=== PATIENT | male | born 1980 | race Hispanic/Latino ===

== ENCOUNTER 2016-12-11 06:47 | Day surgery (SDC) | payer OTHER ==
[~2016-12-11] VITALS: Ht 175.3 cm; Wt 142.9 kg
[~2016-12-11 06:47] MED LIST: ANTIPY/BENZO OT; BACTRIM DS1 TAB PO; CELEBREX50 MG PO; CIPRO500 MG OR; CLEOCIN150 MG OR; CLEOCIN150 MG PO; CLINDAMYCIN150 MG OR; CLINDAMYCIN150 MG PO; CORTISPORIN OTI10 M1 OT; DICLOFEN POT50 MG PO; DORYX100 MG OR; FLEXERIL PO; FLEXERIL5 MG PO; FLOXIN OTIC OT; LISINOPRIL10 MG PO; LISINOPRIL20 MG OR; LORTAB 10 OR; LORTAB 10-325 M1 TAB PO; LORTAB 5 OR; LORTAB5 OR; LORTAB5 PO; LOVASTATIN10 M1 PO; LOVASTATIN20 MG OR; MEDDOSEPAK OR; METFORMIN1000 MG OR; METFORMIN500 M2 PO; NAPROSYN500 MG PO; NOVOLIN 70/30 RELION SC; NOVOLOG MIX SC; ROBITUSSIN AC10 ML PO; ULTRAM50 M1 PO; ZITHROMAX Z-PAK1 TAB PO; ZITHROMAX250 MG PO
[2016-12-11] MEDS ORDERED: ALPRAZOLAM1 MG PO (07:29)
[2016-12-11 08:48] VITALS: BP 121/62
== END 2016-12-11 09:35 | disposition home or self-care (01) | DRG 552 ==
LOC: ORM 06:47
PROVIDERS: ATTEND Anesthesiology Pain Medicine
PROC: 3E0T3BZ Introduction of Anesthetic Agent into Peripheral Nerves and Plexi, Percutaneous Approach (ICD-10-PCS; principal; 2016-12-11)
PROC: 3E0T33Z Introduction of Anti-inflammatory into Peripheral Nerves and Plexi, Percutaneous Approach (ICD-10-PCS; 2016-12-11)
PROC: 3E0T3BZ Introduction of Anesthetic Agent into Peripheral Nerves and Plexi, Percutaneous Approach (ICD-10-PCS; 2016-12-11)
PROC: 3E0T33Z Introduction of Anti-inflammatory into Peripheral Nerves and Plexi, Percutaneous Approach (ICD-10-PCS; 2016-12-11)
PROC: 3E0T3BZ Introduction of Anesthetic Agent into Peripheral Nerves and Plexi, Percutaneous Approach (ICD-10-PCS; 2016-12-11)
PROC: 3E0T33Z Introduction of Anti-inflammatory into Peripheral Nerves and Plexi, Percutaneous Approach (ICD-10-PCS; 2016-12-11)
DX: M54.5 Low back pain (principal)

== ENCOUNTER 2017-06-09 11:56 | Emergency (ER) | payer SELFPAY ==
[~2017-06-09] VITALS: Ht 175.3 cm; Wt 136.4 kg
[~2017-06-09 11:56] MED LIST changes: +ALPRAZOLAM1 MG PO
[2017-06-09] MEDS ORDERED: LORTAB 5/3255 MG PO (12:30)
[2017-06-09 12:32] VITALS: BP 141/77
== END 2017-06-09 12:34 | disposition home or self-care (01) | DRG 159 ==
LOC: ED 11:56
DX: K02.9 Dental caries, unspecified (principal); E11.9 Type 2 diabetes mellitus without complications; M54.9 Dorsalgia, unspecified; E78.5 Hyperlipidemia, unspecified; G89.29 Other chronic pain

== ENCOUNTER 2017-09-05 14:54 | Emergency (ER) | payer OTHER ==
[~2017-09-05] VITALS: Ht 175.3 cm; Wt 142.8 kg
[~2017-09-05 14:54] MED LIST changes: +LORTAB 5/3255 MG PO
[2017-09-05] MEDS ORDERED: GABAPENTIN100 MG PO (15:31)
[2017-09-05] MEDS ORDERED: TRAZODONE50 MG PO (15:31)
[2017-09-05 16:07] LABS: INFLUENZA A NONE DETECTED (NONE DETECT); INFLUENZA B NONE DETECTED (NONE DETECT)
[2017-09-05] MEDS ORDERED: CLINDAMYCIN300 M1 PO (16:14)
[2017-09-05 16:16] VITALS: BP 132/75
== END 2017-09-05 16:20 | disposition home or self-care (01) | DRG 153 ==
LOC: ED 14:54
PROVIDERS: Emergency Medicine
DX: J02.9 Acute pharyngitis, unspecified (principal); E11.9 Type 2 diabetes mellitus without complications

== ENCOUNTER 2019-02-20 20:53 | Emergency (ER) | payer OTHER ==
[~2019-02-20] VITALS: Ht 175.3 cm; Wt 120.0 kg
[~2019-02-20 20:53] MED LIST changes: +CLINDAMYCIN300 M1 PO; +GABAPENTIN100 MG PO; +TRAZODONE50 MG PO
[2019-02-20] MEDS ORDERED: CORTISPORIN OTI10 M2 AS (21:07)
[2019-02-20 21:20] VITALS: BP 150/100
[2019-02-20] MEDS ORDERED: NOVOLOG FL100 UNIT/M SC (21:20)
[2019-02-20] MEDS ORDERED: VIIBRYD40 MG PO (21:21)
[2019-02-20] MEDS ORDERED: NEURONTIN300 MG PO (21:21)
[2019-02-20] MEDS ORDERED: TRAZODONE HYDR150 MG PO (21:22)
[2019-02-20] MEDS ORDERED: CYCLOBENZAPR10 MG PO (21:22)
[2019-02-20] MEDS ORDERED: ULTRAM50 M1 PO (21:23)
== END 2019-02-20 21:20 | disposition home or self-care (01) ==
LOC: ED 20:53
DX: H60.92 Unspecified otitis externa, left ear (principal); E11.9 Type 2 diabetes mellitus without complications; Z79.4 Long term (current) use of insulin

== ENCOUNTER 2019-02-24 01:42 | Emergency (ER) | payer OTHER ==
[~2019-02-24] VITALS: Ht 175.3 cm; Wt 139.0 kg
[~2019-02-24 01:42] MED LIST changes: +CORTISPORIN OTI10 M2 AS; +CYCLOBENZAPR10 MG PO; +NEURONTIN300 MG PO; +NOVOLOG FL100 UNIT/M SC; +TRAZODONE HYDR150 MG PO; +VIIBRYD40 MG PO
[2019-02-24] MEDS ORDERED: ZITHROMAX250 MG PO (03:03)
[2019-02-24] MEDS ORDERED: FLOXIN OTIC0.3 % OT (03:03)
[2019-02-24 04:03] VITALS: BP 138/74
== END 2019-02-24 03:49 | disposition home or self-care (01) ==
LOC: ED 01:42
DX: H66.93 Otitis media, unspecified, bilateral (principal); J02.9 Acute pharyngitis, unspecified; E11.9 Type 2 diabetes mellitus without complications

== ENCOUNTER 2020-12-06 13:44 | Emergency (ER) | payer OTHER ==
[~2020-12-06] VITALS: Ht 175.3 cm; Wt 150.0 kg
[~2020-12-06 13:44] MED LIST changes: +FLOXIN OTIC0.3 % OT
[2020-12-06] MEDS ORDERED: KEFLEX500 MG PO (14:55)
[2020-12-06] MEDS ORDERED: TYLENOL # 31 TA1 PO (14:55)
[2020-12-06 15:16] VITALS: BP 135/87
== END 2020-12-06 15:16 | disposition home or self-care (01) ==
LOC: ED 13:44
DX: K04.7 Periapical abscess without sinus (principal); E11.9 Type 2 diabetes mellitus without complications; F31.9 Bipolar disorder, unspecified; Z79.4 Long term (current) use of insulin

== ENCOUNTER 2021-02-06 02:54 | Emergency (ER) | payer OTHER ==
[~2021-02-06] VITALS: Ht 175.3 cm; Wt 145.0 kg
[~2021-02-06 02:54] MED LIST changes: +KEFLEX500 MG PO; +TYLENOL # 31 TA1 PO
[2021-02-06 03:41] LABS: URINE BILIRUBIN - DIPSTICK NEGATIVE (NEGATIVE); URINE BLOOD DIPSTICK NEGATIVE (NEGATIVE); URINE COLOR YELLOW; URINE GLUCOSE - DIPSTICK >=1000 mg/dL (NEGATIVE); URINE KETONE NEGATIVE (NEGATIVE); URINE LEUK ESTERASE NEGATIVE (NEGATIVE); URINE PROTEIN - DIPSTICK 30 mg/dL (NEG-TRACE); URINE SPECIFIC GRAVITY 1.025; URINE UROBILINOGEN - DIPSTICK 0.2 E.U./dL (0.2)
[2021-02-06 03:42] LABS: HEMATOCRIT 48.8 % (39.0-50.0); HEMOGLOBIN 16.5 g/dl (14.0-18.0); IMMATURE GRANULOCYTES 0.3 % (0.0-5.0); MEAN CELL VOLUME 92.1 fL CALC (80.0-100.0); MEAN CORPUSCULAR HGB 31.1 pG CALC (26.0-32.0); MEAN CORPUSCULAR HGB CONC 33.8 g/dL CAL (32.0-36.0); NEUT# 6.38 thou/uL (1.82-7.42); RED BLOOD COUNT 5.3 mill/uL (4.70-6.10); RED CELL DISTRI WIDTH 12.3 % (11.5-15.5)
[2021-02-06 03:43] LABS: URINE NITRITE - DIPSTICK NEGATIVE (Negative)
[2021-02-06 03:53] LABS: URINE SQUAMOUS EPITHELIAL CELL FEW EPI/hpf (0-FEW)
[2021-02-06 03:57] LABS: ALBUMIN 4.4 g/dL (3.2-5.0); ALKALINE PHOSPHATASE 72 u/l (38-126); ANION GAP 15 (6-22 (CALC)); BILIRUBIN, TOTAL 0.7 mg/dL (0.0-1.4); BUN 13 mg/dL (9-20); BUN/CREATININE RATIO 15 (12-20 (CALC)); CARBON DIOXIDE 24 mmol/l (22-30); CHLORIDE 99 mmol/l (95-108); CREATININE 0.9 mg/dL (0.7-1.3); GFR > 60 ML/MIN (>=60 (CALC)); GFR FOR AFR.AMER. > 60 ML/MIN (>=60 (CALC)); SGOT/AST 37 u/l (17-59); SODIUM 134 mmol/l (137-146); TOTAL PROTEIN 8.3 g/dL (6.3-8.2)
[2021-02-06 04:09] LABS: MYOGLOBIN 25 ng/mL (0 - 121)
[2021-02-06] MEDS ORDERED: ZITHROMAX250 MG PO (06:43)
[2021-02-06 06:56] VITALS: BP 144/70
== END 2021-02-06 07:00 | disposition home or self-care (01) ==
LOC: ED 02:54
PROVIDERS: Emergency Medicine
DX: F41.9 Anxiety disorder, unspecified (principal); E11.9 Type 2 diabetes mellitus without complications; I10 Essential (primary) hypertension; Z88.0 Allergy status to penicillin; Z79.4 Long term (current) use of insulin; Z20.822 Contact with and (suspected) exposure to COVID-19

== ENCOUNTER 2021-04-23 15:01 | Emergency (ER) | payer OTHER ==
[~2021-04-23] VITALS: Ht 175.3 cm; Wt 162.0 kg
[2021-04-23] MEDS ORDERED: [UNRECOGNIZED DRUG - OTHER] PO (16:02)
[2021-04-23] MEDS ORDERED: JANUVIA100 MG PO (16:02)
[2021-04-23] MEDS ORDERED: XANAX1 MG PO (16:03)
[2021-04-23 16:09] LABS: HEMOGLOBIN 14.9 g/dl (14.0-18.0); IMMATURE GRANULOCYTES 0.3 % (0.0-5.0); MEAN CELL VOLUME 93.4 fL CALC (80.0-100.0); MEAN CORPUSCULAR HGB 31.6 pG CALC (26.0-32.0); MEAN CORPUSCULAR HGB CONC 33.9 g/dL CAL (32.0-36.0); NEUT# 4.33 thou/uL (1.82-7.42); RED BLOOD COUNT 4.71 mill/uL (4.70-6.10); RED CELL DISTRI WIDTH 12.3 % (11.5-15.5)
[2021-04-23 16:28] LABS: ALBUMIN 4.1 g/dL (3.2-5.0); ALKALINE PHOSPHATASE 99 u/l (38-126); ANION GAP 13 (6-22 (CALC)); BILIRUBIN, TOTAL 0.6 mg/dL (0.0-1.4); BUN 11 mg/dL (9-20); BUN/CREATININE RATIO 19 (12-20 (CALC)); CARBON DIOXIDE 27 mmol/l (22-30); CHLORIDE 99 mmol/l (95-108); CREATININE 0.6 mg/dL (0.7-1.3); ETHYL ALCOHOL 0 mg/dl (0-30); GFR > 60 ML/MIN (>=60 (CALC)); GFR FOR AFR.AMER. > 60 ML/MIN (>=60 (CALC)); POTASSIUM 3.9 mmol/l (3.5-5.1); SGOT/AST 35 u/l (17-59); SODIUM 135 mmol/l (137-146); TOTAL PROTEIN 7.5 g/dL (6.3-8.2)
[2021-04-23 17:55] VITALS: BP 164/104
== END 2021-04-23 17:45 | disposition left against medical advice (07) ==
LOC: ED 15:01
PROVIDERS: Family Medicine
DX: R53.83 Other fatigue (principal); K08.89 Other specified disorders of teeth and supporting structures; E11.9 Type 2 diabetes mellitus without complications; F31.9 Bipolar disorder, unspecified; M54.9 Dorsalgia, unspecified; G89.29 Other chronic pain; Z79.4 Long term (current) use of insulin

== ENCOUNTER 2021-10-08 10:02 | Emergency (ER) | payer OTHER ==
[~2021-10-08] VITALS: Ht 175.3 cm; Wt 144.0 kg
[~2021-10-08 10:02] MED LIST changes: +JANUVIA100 MG PO; +XANAX1 MG PO; +[UNRECOGNIZED DRUG - OTHER] PO
[2021-10-08 13:13] VITALS: BP 141/72
== END 2021-10-08 13:21 | disposition home or self-care (01) ==
LOC: ED 10:02
DX: M54.6 Pain in thoracic spine (principal); M54.50 Low back pain, unspecified; E11.22 Type 2 diabetes mellitus with diabetic chronic kidney disease; N18.9 Chronic kidney disease, unspecified; E66.9 Obesity, unspecified; F31.9 Bipolar disorder, unspecified; Z79.4 Long term (current) use of insulin; Z79.84 Long term (current) use of oral hypoglycemic drugs

== ENCOUNTER 2022-10-16 20:50 | Emergency (ER) | payer OTHER ==
[~2022-10-16] VITALS: Ht 175.3 cm; Wt 134.0 kg
[2022-10-16] VITALS (9 sets, daily range): BP systolic 129–157; BP diastolic 83–105
[2022-10-16] MEDS ORDERED: PERCOCET 10/31 COMBO PO (22:24)
[2022-10-16] MEDS ORDERED: BACTRIM DS1 TAB PO (22:24)
== END 2022-10-16 23:15 | disposition home or self-care (01) ==
LOC: ED 20:50
DX: K04.7 Periapical abscess without sinus (principal); K02.9 Dental caries, unspecified; K08.409 Partial loss of teeth, unspecified cause, unspecified class; E11.9 Type 2 diabetes mellitus without complications; F31.9 Bipolar disorder, unspecified; Z79.84 Long term (current) use of oral hypoglycemic drugs; Z79.4 Long term (current) use of insulin

== ENCOUNTER 2022-11-06 23:03 | Emergency (ER) | payer OTHER ==
[~2022-11-06] VITALS: Ht 175.3 cm; Wt 100.0 kg
[~2022-11-06 23:03] MED LIST changes: +PERCOCET 10/31 COMBO PO
[2022-11-06 23:12] VITALS: BP 150/102
[2022-11-06 23:16] VITALS: BP 147/100
[2022-11-06 23:31] VITALS: BP 137/96
[2022-11-06 23:46] VITALS: BP 141/98
[2022-11-06 23:53] LABS: BASO% 0.8 % (0-3); EOS% 2.3 % (0-8); HEMATOCRIT 48.2 % (39.0-50.0); HEMOGLOBIN 16.2 g/dl (14.0-18.0); IMMATURE GRANULOCYTES 0.2 % (0.0-5.0); LYMPH% 27.4 % (15-41); MEAN CELL VOLUME 93.4 fL CALC (80.0-100.0); MEAN CORPUSCULAR HGB 31.4 pG CALC (26.0-32.0); MEAN CORPUSCULAR HGB CONC 33.6 g/dL CAL (32.0-36.0); MONO% 6.4 % (2-13); NEUT# 5.77 thou/uL (1.82-7.42); NEUT% 62.9 % (42-76); RED BLOOD COUNT 5.16 mill/uL (4.70-6.10); RED CELL DISTRI WIDTH 12.3 % (11.5-15.5)
[2022-11-07 00:01] VITALS: BP 123/75
[2022-11-07 00:15] VITALS: BP 123/75
== END 2022-11-07 00:15 | disposition home or self-care (01) ==
LOC: ED 23:03
PROVIDERS: Family Medicine
DX: J06.9 Acute upper respiratory infection, unspecified (principal); E11.9 Type 2 diabetes mellitus without complications; F31.9 Bipolar disorder, unspecified; Z79.84 Long term (current) use of oral hypoglycemic drugs; Z79.4 Long term (current) use of insulin; Z20.822 Contact with and (suspected) exposure to COVID-19

== ENCOUNTER 2024-09-03 19:34 | Emergency (ER) | payer MEDICAID ==
[~2024-09-03] VITALS: Ht 175.3 cm; Wt 138.0 kg
[2024-09-03 22:15] VITALS: BP 131/89
== END 2024-09-03 22:31 | disposition home or self-care (01) ==
LOC: ED 19:34
DX: H61.23 Impacted cerumen, bilateral (principal); E11.9 Type 2 diabetes mellitus without complications; F31.9 Bipolar disorder, unspecified; Z79.4 Long term (current) use of insulin; Z79.85 Long-term (current) use of injectable non-insulin antidiabetic drugs